=== PATIENT | female | born 1980 | race Caucasian/White ===

== ENCOUNTER 2021-08-25 16:50 | Emergency (ER) | payer OTHER ==
[2021-08-25 19:08] LABS: BASOPHIL 0.2 % (0-2); EOSINOPHIL 0.3 % (0-5); HGB 13.4 g/dl (12.5-16.0); LYMPHOCYTE 31.9 % (15-48); MCHC 33.5 g/dL (32.0-36.0); MCV 92.6 fL (78.0-100.0); MONOCYTE 4.4 % (0-12); MPV 10.1 fL (6.0-9.5); NRBC 0; PLT 263 K/uL (150-400); RBC 4.32 M/uL (4.20-5.40); RDW 13.1 % (11.5-14.0); WBC 6.3 K/uL (4.0-10.5)
[2021-08-25 19:31] LABS: ALBUMIN 3.9 g/dL (3.4-5.0); BILIRUBIN - TOTAL 0.2 mg/dL (0.2-1.0); BUN/CREAT RATIO (CALC) 11.8 RATIO; CREATININE 0.68 mg/dL (0.51-0.95); GLOBULIN (CALCULATION) 3.4 g/dL; POTASSIUM 4.4 mmol/L (3.5-5.1); TOTAL PROTEIN 7.3 g/dL (6.4-8.2)
[2021-08-25] MEDS ORDERED: IBU800 MG PO (20:20)
[2021-08-25] MEDS ORDERED: PREDNISONE 20MG20 MG PO (20:20)
== END 2021-08-25 20:35 | disposition home or self-care (01) ==
LOC: FER 16:50
PROVIDERS: Physician Assistant
DX: M32.9 Systemic lupus erythematosus, unspecified (principal); R91.8 Other nonspecific abnormal finding of lung field; F17.210 Nicotine dependence, cigarettes, uncomplicated; Z88.0 Allergy status to penicillin; Z88.1 Allergy status to other antibiotic agents
CPT/HCPCS: 36415; 71046; 80053; 84484; 85025; 85379; 93005; J1885; J7512

== ENCOUNTER 2022-03-08 18:37 | Emergency (ER) | payer OTHER ==
[~2022-03-08 18:37] MED LIST: IBU800 MG PO; PREDNISONE 20MG20 MG PO
[2022-03-08 19:30] LABS: BASOPHIL 0 % (0-2); EOSINOPHIL 0.3 % (0-5); HGB 13.5 g/dl (12.5-16.0); MCH 31.3 pg (25.0-31.0); MCHC 34.6 g/dL (32.0-36.0); MCV 90.5 fL (78.0-100.0); MONOCYTE 9.7 % (0-12); MPV 10.1 fL (6.0-9.5); NEUTROPHIL 59.7 % (41-80); NRBC 0; PLT 230 K/uL (150-400); RBC 4.31 M/uL (4.20-5.40); WBC 3.5 K/uL (4.0-10.5)
[2022-03-08 19:50] LABS: ALBUMIN 3.8 g/dL (3.4-5.0); BILIRUBIN - TOTAL 0.2 mg/dL (0.2-1.0); BUN/CREAT RATIO (CALC) 8.8 RATIO; CREATININE 0.68 mg/dL (0.51-0.95); GLOBULIN (CALCULATION) 3.4 g/dL; POTASSIUM 3.3 mmol/L (3.5-5.1); TOTAL PROTEIN 7.2 g/dL (6.4-8.2)
[2022-03-08 20:07] LABS: INFLUENZA A NAA NEGATIVE (NEGATIVE)
[2022-03-08 20:08] LABS: CORONAVIRUS 2019 SARS-COV-2 POSITIVE (NEGATIVE)
[2022-03-08] MEDS ORDERED: PAXLOVID 300-11 EACH PO (20:19)
[2022-03-08] MEDS ORDERED: ONDANSETRON ODT4 MG PO (20:19)
== END 2022-03-08 21:55 | disposition home or self-care (01) ==
LOC: FER 18:37
PROVIDERS: Emergency Medicine
DX: U07.1 COVID-19 (principal); Z28.310 Unvaccinated for COVID-19; Z88.0 Allergy status to penicillin
CPT/HCPCS: 36415; 71045; 80053; 84484; 85025; 93005; J1885; J2405; J7030; U0002